=== PATIENT | male | born 1975 | race Caucasian/White ===

== ENCOUNTER 2018-11-28 21:59 | Emergency (ER) | payer BC ==
[2018-11-28 22:20] VITALS: TEMP 98.8
[2018-11-28] MEDS ORDERED: guaiFENesin-DM 600/30MG 1 EACH TAB.ER.12H PO STA (22:44)
[2018-11-28] MEDS ORDERED: PROPARACAINE 0.5% OPHTH DROPS 15 ML BTL BOTH EYES STA (22:44)
--- NOTE | 2018-11-28 23:14 | XR ---
EXAMINATION TYPE: XR chest 2V DATE OF EXAM: 11/28/2018 COMPARISON: NONE HISTORY: Cough and difficulty breathing TECHNIQUE: Frontal and lateral views of the chest are obtained. FINDINGS: Heart and mediastinum are normal. There is linear density at the right lung base. The othe r lung goff are clear. There is no pleural effusion. Bony thorax is intact. IMPRESSION: Mild atelectasis right lung base. Normal heart.
--- NOTE | 2018-11-29 00:27 | ED ---
General Adult HPI - General Chief complaint: Recheck/Abnormal Lab/Rx Stated complaint: Poss poisoned Time Seen by Provider: 11/28/18 22:23 Source: patient Mode of arrival: ambulatory Limitations: no limitations - History of Present Illness Initial comments: 43-year-old male patient presents to the emergency department today for evaluation of sore throat, cough, nasal congestion. Patient states his eyes are also burning. Patient states he has had fevers and chills. He is requiring harsh cough. Denies sputum production. Denies any hemoptysis. Denies any ear pain. 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 Patient is concerned that he may have been exposed to a toxic substance of presented here for further evaluation. Patient states that symptoms started later in the evening the same day of the sewer contractor trip. States he did take ibuprofen and cough syrup. Patient denies any recent rash, chest pain, abdominal pain, nausea, vomiting, diarrhea, constipation, back pain, numbness, tingling, dizziness, weakness, hematuria, dysuria, urinary urgency, urinary frequency, headache, visual changes, or any other complaints. - Related Data Previous Rx's Medication Instructions Recorded Oseltamivir [Tamiflu] 75 mg PO Q12HR #10 cap 11/29/18 guaiFENesin-DM 600/30MG [Mucinex 1 each PO Q12HR #10 tab.er.12h 11/29/18 Dm] Allergies Allergy/AdvReac Type Severity Reaction Status Date / Time Penicillins Allergy Rash/Hives Verified 11/28/18 22:34 Review of Systems ROS Statement: Those systems with pertinent positive or pertinent negative responses have been documented in the HPI. ROS Other: All systems not noted in ROS Statement are negative. Past Medical History Past Medical History: Hypertension Additional Past Medical History / Comment(s): goutt History of Any Multi-Drug Resistant Organisms: None Reported Past Surgical History: Appendectomy Past Psychological History: No Psychological Hx Reported Smoking Status: Former smoker Past Alcohol Use History: Occasional Past Drug Use History: None Reported General Exam Limitations: no limitations General appearance: alert, in no apparent distress, other (This is a well- developed, well-nourished adult male patient in no acute distress. Vital signs upon presentation are temperature 98.8F, pulse 111, respirations 19, blood pressure 166/102, pulse ox 97% on room air.) Eye exam: Present: normal appearance, PERRL, EOMI. Absent: scleral icterus, conjunctival injection, periorbital swelling ENT exam: Present: mucous membranes moist, TM's normal bilaterally. Absent: normal exam, normal oropharynx (Pharyngeal erythema) Respiratory exam: Present: normal lung sounds bilaterally. Absent: respiratory distress, wheezes, rales, rhonchi, stridor Cardiovascular Exam: Present: regular rate, normal rhythm, normal heart sounds. Absent: systolic murmur, diastolic murmur, rubs, gallop, clicks GI/Abdominal exam: Present: soft, normal bowel sounds. Absent: distended, tenderness, guarding, rebound, rigid Neurological exam: Present: alert, oriented X3, CN II-XII intact Psychiatric exam: Present: normal affect, normal mood Skin exam: Present: warm, dry, intact, normal color. Absent: rash Course Vital Signs 11/28/18 22:16 Temperature 98.8 F Pulse Rate 111 H Respiratory 19 Rate Blood Pressure 166/102 O2 Sat by Pulse 97 Oximetry Medical Decision Making - Medical Decision Making 43-year-old male patient presents to the emergency department today for evaluation of cough, congestion, and fever. Patient is also reporting eye discomfort and burning. Physical examination did reveal pharyngeal erythema. Did perform fluorescein stain with Wood's lamp examination which was negative for any evidence of foreign body or abrasion. Chest x-ray showed no acute cardiopulmonary process. Patient was influenza A positive. Patient symptoms are consistent with influenza infection. We did discuss use of Tamiflu including risks versus benefits, patient is requesting to receive the medication. He will be given a prescription for Mucinex D. Educated regarding fever management. He is instructed to follow-up with his primary care physician for recheck in 1-2 days. Return parameters discussed in detail. He verbalizes understanding and agrees with this plan. - Lab Data Lab Results 11/28/18 Range/Units 23:42 Influenza Type A RNA Detected H (Not Detectd) Influenza Type B (PCR) Not Detected (Not Detectd) - Radiology Data Radiology results: report reviewed, image reviewed Two-view x-ray of the chest is obtained. Report was reviewed in its entirety. Impression by Dr. Israel shows mild atelectasis at the right lung base. Normal heart. Disposition Clinical Impression: Influenza A Disposition: HOME SELF-CARE Condition: Good Instructions: Influenza (ED) Additional Instructions: Increase fluids. Take Tylenol and Motrin for fever control. Take medications as directed. Follow-up with your primary care physician for recheck in 1-2 days. Return immediately for any new, worsening, or concerning symptoms. Prescriptions: guaiFENesin-DM 600/30MG [Mucinex Dm] 1 each PO Q12HR #10 tab.er.12h Oseltamivir [Tamiflu] 75 mg PO Q12HR #10 cap Is patient prescribed a controlled substance at d/c from ED?: No Referrals: Saad Mckeon III, MD [Primary Care Provider] - 1-2 days Time of Disposition: 00:27
[2018-11-29] MEDS ORDERED: OSELTAMIVIR 75 MG CAP PO STA (00:28)
[2018-11-29 00:50] VITALS: BP 158/80; PULSE 78; RESP 18
== END 2018-11-29 00:51 | disposition home or self-care (01) ==
LOC: EC 21:59
DX: J10.1 Influenza due to other identified influenza virus with other respiratory manifestations (principal); J98.11 Atelectasis; H57.89 Other specified disorders of eye and adnexa; Z87.891 Personal history of nicotine dependence; Z88.0 Allergy status to penicillin
CPT/HCPCS: 71046; 87502; 99283

== ENCOUNTER → 2021-07-04 | Outpatient (CLI) | payer BC ==
--- NOTE | 2021-07-04 11:13 | P.STRESS ---
- Stress Test Note Stress Test Results/Findings: Exam Performed: stress test Exam Date: 07/04/21 Reason for Exam: PALPITATIONS Height: 5 ft 5 in Weight: 99 kg Protocol: TRACIE Stage: 3 Duration of Exercise: 9:00 Resting Heart Rate: 73 Resting Blood Pressure: 134/81 Maximum Achieved Heart Rate: 120 Maximum Achieved Blood Pressure: 161/99 85% PMHR: 147 100% PMHR: 173 METS: 9.9 Technologist Comment: Stress Test Results/Findings: This is a 46-year-old gentleman with history of hypertension, hypercholesteremia, smoking history and being evaluated for cardiac status. Patient also has family history. Stress data: Baseline EKG showed sinus rhythm with normal [place] interval, QRS duration. Blood pressure at rest is 1:30/81 with pulse rate of 73. Patient walked on the Tracie protocol for 9 minutes achieving a maximum heart rate of 128. The blood pressure 161/99. The patient has achieved only 69% of the predicted heart rate. Patient was unable to continue because of fatigue. EKGs taken during and after the exercise did not reveal any significant changes from the baseline. No chest pain. Final impression: #1. Nondiagnostic stress test as patient did not achieve 85% predicted heart rate. #2. Patient did not experience any chest pain #3. The test was stopped because of fatigue. #4. No arrhythmias noted
--- NOTE | 2021-07-06 09:23 | EST ---
Stress Test Results/Findings: Exam Performed: stress test Exam Date: 07/04/21 Reason for Exam: PALPITATIONS Height: 5 ft 5 in Weight: 99 kg Protocol: TRACIE Stage: 3 Duration of Exercise: 9:00 Resting Heart Rate: 73 Resting Blood Pressure: 134/81 Maximum Achieved Heart Rate: 120 Maximum Achieved Blood Pressure: 161/99 85% PMHR: 147 100% PMHR: 173 METS: 9.9 Technologist Comment: Stress Test Results/Findings: This is a 46-year-old gentleman with history of hypertension, hypercholesteremia, smoking history and being evaluated for cardiac status. Patient also has family history. Stress data: Baseline EKG showed sinus rhythm with normal [place] interval, QRS duration. Blood pressure at rest is 1:30/81 with pulse rate of 73. Patient walked on the Tracie protocol for 9 minutes achieving a maximum heart rate of 128. The blood pressure 161/99. The patient has achieved only 69% of the predicted heart rate. Patient was unable to continue because of fatigue. EKGs taken during and after the exercise did not reveal any significant changes from the baseline. No chest pain. Final impression: #1. Nondiagnostic stress test as patient did not achieve 85% predicted heart rate. #2. Patient did not experience any chest pain #3. The test was stopped because of fatigue. #4. No arrhythmias noted MTDD
== END | disposition home or self-care (01) ==
LOC: RADNMMAIN 08:10
PROVIDERS: ATTEND Internal Medicine
DX: R00.2 Palpitations (principal)
CPT/HCPCS: 93017

== ENCOUNTER → 2024-06-08 | Outpatient (CLI) | payer BC ==
[2024-06-08 18:26] LABS: Basophils % (A) 1.1 %; Eosinophils # (A) 0.19 X 10*3/uL (0.04-0.35); HGB 15.5 g/dL (13.0-17.0); Lymphocytes # (A) 3.63 X 10*3/uL (0.90-5.00); Lymphocytes % (A) 38.8 %; MCH 31.3 pg (27.0-32.0); MCHC 33.7 g/dL (32.0-37.0); MCV 92.7 FL (80.0-97.0); Monocytes # (A) 0.76 X 10*3/uL (0.20-1.00); Monocytes % (A) 8.1 %; NRBC Per 100 WBC 0 X 10*3/uL (0.00-0.01); Neutrophils # (A) 4.62 X 10*3/uL (1.80-7.70); Neutrophils % (A) 49.5 %; Platelet Count 258 X 10*3/uL (140-440); RBC 4.96 X 10*6/uL (4.40-5.60); RDW 13.2 % (11.5-14.5); WBC 9.35 X 10*3/uL (4.50-10.00)
[2024-06-08 19:29] LABS: Hepatitis B Surface Antigen Nonreactive (Nonreactive); Hepatitis C IgG Antibody Nonreactive (Nonreactive)
[2024-06-08 19:32] LABS: ALT 17 U/L (10-49); AST 23 U/L (14-35)
[2024-06-08 19:47] LABS: Hepatitis B Surface AB- Quant 3.5 mIU/mL
== END | disposition home or self-care (01) ==
LOC: LABWHC1 13:36
PROVIDERS: ATTEND Nurse Practitioner
DX: L40.0 Psoriasis vulgaris (principal); L63.8 Other alopecia areata
CPT/HCPCS: 36415; 82565; 84450; 84460; 85025; 86480; 86704; 86706; 86803; 87340